=== PATIENT | male | born 1965 ===

== ENCOUNTER 2024-08-04 14:10 | Outpatient (CLI) | payer MEDICARE, SELFPAY ==
--- NOTE | 2024-08-04 14:24 | CT_ITS ---
WS: [id number] CT CERVICAL SPINE with contrast HISTORY: CERVICAL RADICULOPATHY TECHNIQUE: Contiguous 2.0 mm axial imaging performed through the entire cervical spine. Sagittal and coronal reformats also performed. All CT scans at [facility] use at least one of these dose optimization techniques: automated exposure control; mA and/or kV adjustment per patient size (includes targeted exams where dose is matched to clinical indication); or iterative reconstruction. DLP: 387.97 mGy.cm Contrast: Omnipaque 350; 100 cc. COMPARISON: None available. Straightening of the normal cervical lordosis. Anterior cervical fusion from C5- C7. Interbody disc spacers at C5-6 and C6-7. No acute fracture. There is an additional posterior cervical fusion beginning at the C3 facets and extending through through C6. Osseous fusion along the posterior facet fusion hardware. No hardware fracture identified. No lucency surrounding the screws or plates. C2-C3: Severe bilateral facet joint arthropathy with mild foraminal stenosis. Large posterior laminectomy defect. C3-C4: Severe bilateral facet arthritis, large posterior laminectomy defect and severe foraminal stenosis. C4-C5: Marked facet arthritis with a bony bridge posteriorly. Severe bilateral foraminal stenosis and mild central stenosis. C5-C6: Marked facet joint arthritis, osteophytic ridging resulting in moderate to severe central and bilateral foraminal stenosis. Greater on the RIGHT. C6-C7: Marked osteophytic ridging and facet arthritis. Osteophyte encroaching upon the ventral thecal sac. Mild central and moderate foraminal stenosis. C7-T1: Mild osteophytic ridging. No significant stenosis. Normal soft tissue enhancement. No masses are identified. Carotid arteries are patent. Small bilateral cervical chain lymph nodes. CT/CT cervical spine w con [id number] IMPRESSION: 1. Prior anterior cervical fusion from C5-C7 with interbody spacers, intact. 2. Posterior cervical fusion from C3-C6 is intact. Osseous fusion extending al mary the facets. 3. Multilevel cervical stenosis with facet joint arthropathy as described yazmin platt. 4. Large laminectomy defects posteriorly at C2-3 and C3-4. 5. C3-4: Severe foraminal stenosis. 6. C4-5: Severe bilateral foraminal stenosis and central stenosis. 7. C5-6: Moderate to severe central and foraminal stenosis. 8. C6-7: Mild central and moderate foraminal stenosis.
[2024-08-04] MEDS: iohexol 350 mg/mL 500 mL Btl (per mL) IV (14:53)
== END 2024-08-04 14:11 | disposition home or self-care (01) ==
PROVIDERS: PCP Nurse Practitioner Family; Visit Provider Nurse Practitioner Family
DX: M54.12 Radiculopathy, cervical region (principal); Z98.1 Arthrodesis status; M48.02 Spinal stenosis, cervical region; M47.892 Other spondylosis, cervical region; M96.89 Other intraoperative and postprocedural complications and disorders of the musculoskeletal system; M25.78 Osteophyte, vertebrae; R93.7 Abnormal findings on diagnostic imaging of other parts of musculoskeletal system; R59.0 Localized enlarged lymph nodes
CPT/HCPCS: 72126

== ENCOUNTER 2025-06-08 11:56 | Outpatient (CLI) | payer MEDICARE, SELFPAY ==
--- NOTE | 2025-06-08 12:15 | MR_ITS ---
WS: [id number] MRI LEFT KNEE HISTORY: M25.562 - Pain in left knee COMPARISON: None available. Anterior cruciate ligament: Intact. Posterior cruciate ligament: Intact. Medial collateral ligament: Very slight separation between the MCL and the meniscus posteriorly. No full-thickness MCL tear. Posterior lateral corner structures: Intact. Medial menisci: Oblique tear through the posterior horn of the medial meniscus. The tear extends to the inferior articular surface. Anterior horn is normal. Lateral meniscus: Intact. Normal signal, size and shape. Extensor mechanism: Distal quadriceps tendon and patellar tendons are intact. Fluid and soft tissue: Moderate size suprapatellar joint effusion. Large Brody's cyst. Lobulated cystic mass near the fibular head associated with the popliteus tendon. Osseous and articular structures: Patellofemoral compartment: Normal. Medial compartment: Mild narrowing of the medial compartment. No fracture or marrow edema. Very mild surface fraying of the cartilage of the femoral condyle closest towards the intercondylar notch. No full-thickness defect. Lateral compartment: Mild narrowing. There is a small subchondral cyst in the lateral tibial plateau. MR/MR knee LT wo con* [id number] IMPRESSION: 1. Oblique tear posterior horn medial meniscus. Tear extends to the inferior a rticular surface. 2. Mild fraying of the cartilage in the medial femoral condyle towards the con dylar notch. This is in close association with the meniscal tear. 3. Moderate-sized suprapatellar joint effusion. 4. Large Brody's cyst. 5. Lobulated cystic mass in the popliteus tendon. Probably represents a small ganglion. 6. Subchondral cyst lateral tibial plateau.
== END 2025-06-08 11:57 | disposition home or self-care (01) ==
PROVIDERS: PCP Nurse Practitioner Family; Visit Provider Nurse Practitioner Family
DX: M25.462 Effusion, left knee (principal); S83.201A Bucket-handle tear of unspecified meniscus, current injury, left knee, initial encounter; X58.XXXA Exposure to other specified factors, initial encounter; M71.22 Synovial cyst of popliteal space [Baker], left knee
CPT/HCPCS: 73721